=== PATIENT | male | born 1970 | race Hispanic/Latino ===

== ENCOUNTER 2025-05-29 10:30 | Emergency (ER) | payer OTHER ==
[~2025-05-29] VITALS: Ht 177.8 cm; Wt 99.8 kg
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
[2025-05-29] MEDS ORDERED: IBUP-2077 PO (11:53)
[2025-05-29 11:58] VITALS: BP 124/71; PULSE 62; RESP 18; TEMP 98.1; O2SAT 97
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
== END 2025-05-29 12:02 | disposition home or self-care (01) ==
LOC: EDH 10:30
DX: S39.012A Strain of muscle, fascia and tendon of lower back, initial encounter (principal); S60.812A Abrasion of left wrist, initial encounter; M25.532 Pain in left wrist; V89.2XXA Person injured in unspecified motor-vehicle accident, traffic, initial encounter; Y93.89 Activity, other specified; Y92.89 Other specified places as the place of occurrence of the external cause; Y99.8 Other external cause status
CPT/HCPCS: 72100; 73110; 99284